=== PATIENT | female | born 1955 | race Caucasian/White ===

== ENCOUNTER 2021-02-07 14:52 | Emergency (ER) | payer MEDICARE, SELFPAY ==
[2021-02-07] VITALS (9 sets, daily range): BP systolic 116–150; BP diastolic 80–100; PULSE 101–163; RESP 18–30; TEMP 36.6; O2SAT 92–98; BMI 35.6
--- NOTE | 2021-02-07 14:50 | ECG_ITS ---
APPROVED REPORT Exam: Resting ECG HR:111 bpm ECG Measurements Heart Rate 111 AXES ID 152 P 17 QRSd 80 QRS -12 QT 332 T 90 QTc 451 Conclusion Sinus tachycardia with premature atrial complexes Inferior infarct, age undetermined Possible Anterolateral infarct, age undetermined Abnormal ECG Electronically signed by : Anthony Smith, 02/09/2021 17:40:18
--- NOTE | 2021-02-07 15:01 | XR_ITS ---
PROCEDURE: XR CHEST PORTABLE CLINICAL HISTORY: SOB COMPARISON: No exams were available for comparison FINDINGS: The cardiomediastinal silhouette and pulmonary vascularity are within normal limits. The lungs are clear without infiltrates, suspicious nodules, or pleural effusions. No acute bony abnormalities. IMPRESSION: No acute findings. Dictated by: Yordan Mcarthur MD 02/07/2021 15:34 Yordan Mcarthur MD in [place] 02/07/2021 15:34
--- NOTE | 2021-02-07 15:35 | [facility].EDGENADL ---
ED Disposition Clinical Impression: Tachycardia Ascites Qualifiers: Ascites type: other type Qualified Code(s): R18.8 - Other ascites Disposition: Home, Self-Care Condition on Discharge: Good Referrals: Provider,Referral, MD [Primary Care Provider] - (PCP in 1 to 2 days.) Time of Disposition: 18:25 - Critical Care Critical Care Time: No Attestation: On 02/07/21, the high probability of a clinically significant, sudden or life threatening deterioration of the following system(s) required my full and direct attention, intervention and personal management. The time I documented below is in addition to time spent performing reported procedures but includes the following listed in this critical care notation. Medical Decision Making - Medical Records Medical records reviewed: Yes: I reviewed the patient's medical records. - Mega Inquiry Pt receiving controlled substance: No Vital Signs: 02/07/21 14:53 02/07/21 15:28 02/07/21 15:30 Temperature 98 F Temperature Source Oral Pulse Rate 111 H 102 H Pulse Rate [Radial] 163 H Respiratory Rate 25 H 23 30 H Blood Pressure 120/80 124/85 Blood Pressure [Right Arm] 150/100 H Blood Pressure Mean Blood Pressure Mean [Right Arm] 116 Blood Pressure Position Sitting Blood Pressure Position [Right Arm] Sitting 02 Sat by Pulse Oximetry 98 93 L 96 Oxygen Delivery Method Room Air Room Air 02/07/21 16:03 02/07/21 16:18 02/07/21 16:19 Temperature Temperature Source Pulse Rate 104 H 105 H Pulse Rate [Radial] Respiratory Rate 24 26 H Blood Pressure 124/85 142/84 H 142/84 H Blood Pressure [Right Arm] Blood Pressure Mean 90 103 Blood Pressure Mean [Right Arm] Blood Pressure Position Sitting Blood Pressure Position [Right Arm] 02 Sat by Pulse Oximetry 92 L 98 Oxygen Delivery Method Room Air 02/07/21 16:30 02/07/21 17:00 Temperature Temperature Source Pulse Rate 104 H 102 H Pulse Rate [Radial] Respiratory Rate 20 20 Blood Pressure 119/80 116/85 Blood Pressure [Right Arm] Blood Pressure Mean 99 94 Blood Pressure Mean [Right Arm] Blood Pressure Position Blood Pressure Position [Right Arm] 02 Sat by Pulse Oximetry 94 L 94 L Oxygen Delivery Method - Lab Data Lab results reviewed: Yes: I reviewed the patient's lab results. Lab Results 02/07/21 15:10: WBC 8.6, RBC 4.62, Hgb 13.2, Hct 39.5, MCV 85.6, MCH 28.6, MCHC 33.4, RDW 16.2, Plt Count 199, MPV 8.7, Neut % (Auto) 81.8 H, Lymph % (Auto) 12.1, [place] % (Auto) 4.3, Eos % (Auto) 1.4, Baso % (Auto) 0.4, Neut # (Auto) 7.0, Lymph # (Auto) 1.1, [place] # (Auto) 0.4, Eos # (Auto) 0.1, Baso # (Auto) 0.0 02/07/21 15:10: Sodium 136, Potassium 3.5, Chloride 101, Carbon Dioxide 25, Anion Gap 13.5, BUN 15, Creatinine 0.80, Estimated Creat Clear 90, Estimated GFR 72, Est GFR ( Amer) 87, Glucose 217 H, Calcium 8.3 L, Troponin I < 0.01 02/07/21 15:10: PT 12.4, INR 1.06 02/07/21 15:10: Total Bilirubin 2.5 H, Direct Bilirubin 0.8 H, Conjugated Bilirubin 0.0, Indirect Bilirubin 1.7 H, Unconjugated Bilirubin 1.7 H, AST 73 H, ALT 39, Alkaline Phosphatase 249 H, Total Protein 6.8, Albumin 3.4 L 02/07/21 15:10: NT-Pro-B Natriuret Pep 305 H Result diagrams: 02/07/21 15:10 02/07/21 15:10 Orders (Tests/Meds): ORDERS Category Date Time Status Troponin I Q3H Lab 02/07/21 18:00 Ordered Troponin I Q3H Lab 02/07/21 21:00 Ordered - Radiology Data #1 Image(s): Chest Image Reviewed: Yes I have reviewed radiologist's interpretation Preliminary Findings: Normal/NAD - ECG Data Tracing #1 Sinus tachycardia with occasional PAC, [address] elevation or depression, normal intervals, ECG initial impression date: 02/07/21 ECG initial impression time: 14:52 Medical Decision Narrative: 65yo F evaluated for tachycardia. Patient in no acute distress on initial evaluation. She seems unbothered by her mild tachycardia. Patient's physical exam is unremarkable
[2021-02-07 15:42] LABS: Chloride 101 mmol/L (98-107); Sodium 136 mmol/L (136-145)
[2021-02-07 15:43] LABS: Basophils % 0.4 % (0.1-2.0); Eosinophils # 0.1 K/mm3 (0.0-0.4); Eosinophils % 1.4 % (0.1-12.0); Hematocrit 39.5 % (37.0-47.0); Hemoglobin 13.2 g/dL (12.2-16.2); Lymphocytes # 1.1 K/mm3 (0.7-4.5); Lymphocytes % 12.1 % (10-50); Mean Corpuscular HGB Conc 33.4 g/dL (31.8-35.4); Mean Corpuscular Hemoglobin 28.6 pg (27.0-31.2); Mean Corpuscular Volume 85.6 fl (81-99); Mean Platelet Volume 8.7 fl (7.4-10.4); Monocytes # 0.4 K/mm3 (0.1-1.0); Monocytes % 4.3 % (1.7-9.3); Neutrophils % 81.8 % (37.0-80.0); Platelet Count 199 K/mm3 (142-424); Potassium 3.5 mmoL/L (3.5-5.1); Red Blood Count 4.62 M/mm3 (4.20-5.40); Red Cell Distribution Width 16.2 % (11.5-17.5); White Blood Count 8.6 K/mm3 (4.8-10.8)
[2021-02-07 15:46] LABS: Alanine Aminotransferase 39 U/L (12-78); Albumin Level 3.4 g/dl (3.5-5.0); Alkaline Phosphatase 249 U/L (38-126); Anion Gap 13.5 mEq/L (5-15); Aspartate Amino Transferase 73 U/L (14-36); Bilirubin,Direct 0.8 mg/dl (0.0-0.4); Bilirubin,Indirect 1.7 mg/dL (0.0-0.9); Bilirubin,Total 2.5 mg/dl (0.2-1.3); Bilirubin,Unconjugated 1.7 mg/dL (0.0-1.1); Blood Urea Nitrogen 15 mg/dl (7-17); Calcium 8.3 mg/dl (8.4-10.2); Carbon Dioxide 25 mmol/L (22.0-30.0); Creatinine Clearance Estimated 90 mL/min (50-200); Estimated Glomerular Filt Rate 72 ml/min (>60); GFR (African American) 87 ML/MIN (>60); Glucose 217 mg/dl (74-100); Total Protein,Serum 6.8 g/dl (6.3-8.2)
[2021-02-07 15:58] LABS: Troponin I < 0.01 ng/ml (0.00-0.034)
--- NOTE | 2021-02-07 16:16 | PC.NURSE ---
PT AND FAMILY UPDATED ON PLAN OF CARE
[2021-02-07 16:25] LABS: INR 1.06 (0.9-1.1); Prothrombin Time 12.4 seconds (10.1-12.5)
[2021-02-07 16:42] LABS: NT Pro Brain Natriuretic Pep. 305 pg/mL (0-125)
== END 2021-02-07 18:36 | disposition home or self-care (01) ==
PROVIDERS: Emergency Provider Family Medicine
DX: R18.8 Other ascites (principal); K74.69 Other cirrhosis of liver; K76.0 Fatty (change of) liver, not elsewhere classified
CPT/HCPCS: 71045; 80048; 80076; 83880; 84484; 85025; 85610; 93005; 99282

== ENCOUNTER 2021-05-26 18:24 | Emergency (ER) | payer MEDICARE, SELFPAY ==
[2021-05-26 18:24] VITALS: BP 108/40; PULSE 76; RESP 16; TEMP 36.9; O2SAT 98; BMI 32.8
--- NOTE | 2021-05-26 18:32 | [facility].EDGENADL ---
ED Disposition Clinical Impression: Knee pain, bilateral Qualifiers: Chronicity: acute Qualified Code(s): M25.561 - Pain in right knee Disposition: Home, Self-Care Condition on Discharge: Good Referrals: Provider,Referral, [Referring] - - Critical Care Critical Care Time: No Attestation: On 05/26/21, the high probability of a clinically significant, sudden or life threatening deterioration of the following system(s) required my full and direct attention, intervention and personal management. The time I documented below is in addition to time spent performing reported procedures but includes the following listed in this critical care notation. Medical Decision Making - Medical Records Medical records reviewed: Yes: I reviewed the patient's medical records. - Mega Inquiry Pt receiving controlled substance: No Vital Signs: 05/26/21 18:24 Temperature 98.5 F Temperature Source Oral Pulse Rate [Radial] 76 Respiratory Rate 16 Blood Pressure [Right Arm] 108/40 L Blood Pressure Mean [Right Arm] 62 Blood Pressure Position [Right Arm] Sitting 02 Sat by Pulse Oximetry 98 Oxygen Delivery Method Room Air Medical Decision Narrative: Patient is a 65-year-old female presents the ED today for further evaluation of fall and bilateral knee pain. Patient is well-appearing on initial evaluation laying on her back on the stretcher in no acute distress. Will evaluate patient with x-rays of each knee, although I think the pretest probability is low for fracture. He is otherwise well, was offered pain medication but denies that require activity at this time. As this was not a syncopal episode, do not need to obtain the laboratory work-up at this time. Trays without significant evidence of fracture, patient will be discharged home, given return precautions return to ED with any new or worsening symptoms, we have applied Duran wrap to patient's knees for pain, she will call if worsening or severe pain, follow-up with primary care for further evaluation. General Adult HPI - General Stated complaint: Fall Time Seen by Provider: 05/26/21 18:28 Mode of Arrival: EMS Source of Information: Patient - History of Present Illness HPI narrative: Patient is a 65-year-old female presents to the ED today after an accident. Patient states that she was walking up some stairs, states that both of her knees locked up on her, and that she fell forward onto them. Patient states that this was not a syncopal episode she did not pass out did not feel presyncopal before, and remembers the entire event, states that she laid on her side while her daughter who is a [employer] called 911, patient states that she was able to stand up afterwards but has not walked since the accident occurred. Patient states that she also had spontaneous loss of bowel movement when she fell, as her knees hurt her very bad, states that this is to her symptoms as well. Patient is otherwise well. Has a history of cirrhosis of the liver, takes spironolactone and Lasix, states that she is followed up with GI several months ago, they have done paracentesis on her in the past but she has not required it recently. - Related Data Home Medications Medication Instructions Recorded Confirmed Furosemide [Lasix 20mg tab] 20 mg PO DAILY 02/07/21 02/07/21 Levothyroxine Sodium 75 mcg PO DAILY 02/07/21 02/07/21 [Levothyroxine] Pantoprazole Sodium [Protonix 40mg 40 mg PO HS 02/07/21 02/07/21 tablet] Spironolactone 50 mg PO DAILY 02/07/21 02/07/21 Allergies Allergy/AdvReac Type Severity Reaction Status Date / Time No Known Allergies Allergy Verified 02/07/21 14:59 [facility] History - Hepatitis A Screen Attestation statement:: This patient has been screened for Hepatitis A risk factors. Other Medical History: Reports: Liver Disease - Social History Smoking Status: Former smoker Alcohol Intake: never ROS Obtained: Yes All systems reviewed & no additional c
--- NOTE | 2021-05-26 18:51 | XR_ITS ---
PROCEDURE INFORMATION: Exam: XR Right Knee Exam date and time: 05/26/2021 6:51 PM Age: 65 years old Clinical indication: Injury or trauma; Fall; Blunt trauma; Knee; Right; Additional info: Fall, anterior knee pain TECHNIQUE: Imaging protocol: XR Right knee. Views: 3 views. Total images: 3 COMPARISON: No relevant prior studies available. FINDINGS: Bones/joints: Osteopenia. Mild joint space narrowing in the medial tibiofemoral compartment. Minor medial joint line spurring. Mild superior patellar spurring. No joint effusion. Soft tissues: No gross soft tissue abnormalities. Other findings: Normal alignment. IMPRESSION: 1. No acute findings. 2. Osteopenia and minor degenerative changes.
--- NOTE | 2021-05-26 18:51 | XR_ITS ---
PROCEDURE INFORMATION: Exam: XR Left Knee Exam date and time: 05/26/2021 6:51 PM Age: 65 years old Clinical indication: Injury or trauma; Fall; Blunt trauma; Knee; Left; Additional info: Fall, anterior knee pain TECHNIQUE: Imaging protocol: XR Left knee. Views: 3 views. Total images: 3 COMPARISON: No relevant prior studies available. FINDINGS: Bones/joints: Osteopenia. No fracture. No blastic or lytic lesions. No significant joint effusion is present. Joint spaces are well-maintained. Mild superior patellar spurring. Soft tissues: No periostitis or osteolysis. No gross soft tissue abnormalities. No foreign bodies. Other findings: Normal alignment. IMPRESSION: 1. No acute findings. 2. Osteopenia.
[2021-05-26 19:18] VITALS: BP 117/70; PULSE 75; O2SAT 96
[2021-05-26 19:30] VITALS: BP 107/71; PULSE 72; O2SAT 97
[2021-05-26 20:00] VITALS: BP 104/67; PULSE 69; O2SAT 98
[2021-05-26 20:30] VITALS: BP 113/73; PULSE 70; O2SAT 97
[2021-05-26 20:35] VITALS: BP 117/72; PULSE 73; RESP 16; TEMP 36.8; O2SAT 98
== END 2021-05-26 20:48 | disposition home or self-care (01) ==
PROVIDERS: Emergency Provider Student in an Organized Health Care Education/Training Program; PCP Internal Medicine
DX: M25.562 Pain in left knee (principal); M25.561 Pain in right knee; Z87.891 Personal history of nicotine dependence; W10.9XXA Fall (on) (from) unspecified stairs and steps, initial encounter; K74.60 Unspecified cirrhosis of liver
CPT/HCPCS: 73562; 99282

== ENCOUNTER → 2021-07-04 15:47 | Outpatient (CLI) | payer MEDICARE, SELFPAY ==
[2021-07-04 17:10] LABS: Anion Gap 9.5 mEq/L (5-15); Blood Urea Nitrogen 18 mg/dl (7-17); Calcium 8.7 mg/dl (8.4-10.2); Carbon Dioxide 29 mmol/L (22.0-30.0); Chloride 96 mmol/L (98-107); Estimated Glomerular Filt Rate 45 ml/min (>60); GFR (African American) 54 ML/MIN (>60); Glucose 142 mg/dl (74-100); Potassium 4.5 mmoL/L (3.5-5.1); Sodium 130 mmol/L (136-145)
== END ==
PROVIDERS: Visit Provider Internal Medicine
DX: N17.9 Acute kidney failure, unspecified (principal)
CPT/HCPCS: 36415; 80048